=== PATIENT | female | born 1940 | race Two or more races ===

== ENCOUNTER 2023-11-02 17:09 | Emergency (ER) | payer SELFPAY ==
--- NOTE | 2023-11-02 18:33 | ED Physician Documentation ---
PD HPI LOWER EXT INJURY - Stated complaint Stated Complaint: FALL - Chief complaint Chief Complaint: Trauma Ext - History obtained from History obtained from: Patient, Family - Additional information Additional information: 83-year-old woman presents with her daughter by private vehicle. Daughter found her down yesterday after a fall and she injured her right shoulder and her right hip. Pain is pretty significant. Patient does have a history of dementia, blood pressure issues, and hyponatremia. PD PAST MEDICAL HISTORY - Past Medical History Cardiovascular: Hypertension Other Past Medical History: low sodium - Past Surgical History Past Surgical History: Yes /[employer]: Hysterectomy - Present Medications Home Medications: Ambulatory Orders Medication Instructions Recorded Confirmed oxyCODONE [Roxicodone] 5 mg PO Q4-6H PRN #12 tablet 11/02/23 - Allergies Allergies/Adverse Reactions: Allergies Allergy/AdvReac Type Severity Reaction Status Date / Time No Known Drug Allergies Allergy Verified 11/02/23 17:25 - Social History Does the pt smoke?: No Smoking Status: Never smoker Does the pt drink ETOH?: No Does the pt have substance abuse?: No PD ED PE NORMAL - Vitals Vital signs reviewed: Yes - General General: No acute distress, Other (Modestly confused, chronic per daughter.) - HEENT HEENT: PERRL, EOMI - Neck Neck: Supple, no meningeal sign, No bony TTP - Cardiac Cardiac: RRR, No murmur - Respiratory Respiratory: No respiratory distress, Clear bilaterally - Abdomen Abdomen: Soft, Non tender - Back Back: No CVA TTP, No spinal TTP - Derm Derm: Normal color, Warm and dry - Extremities Extremities: Other (Mild tenderness over the humeral head on the right, but seemingly good range of motion there. Quite tender over the right hip. No deformity. Pain with internal and external rotation there.) - Psych Psych: Normal mood, Normal affect Results - Vitals Vitals: Vital Signs - 24 hr 11/02/23 11/02/23 11/02/23 17:15 19:42 21:24 Temperature 36.3 C L Heart Rate 73 78 64 Respiratory 22 18 18 Rate Blood Pressure 154/60 H 201/88 H 115/54 L O2 Saturation 97 100 95 Oxygen O2 Source Room air - Labs Labs: Laboratory Tests 11/02/23 11/02/23 11/02/23 18:48 18:48 18:48 WBC 12.7 H RBC 4.02 L Hgb 12.1 Hct 36.1 L MCV 89.8 MCH 30.1 MCHC 33.5 RDW 11.3 L Plt Count 272 MPV 8.1 Neut # (Auto) 8.1 H Lymph # (Auto) 3.2 [place] # (Auto) 1.1 H Eos # (Auto) 0.4 Baso # (Auto) 0.1 Absolute Nucleated RBC 0.00 Nucleated RBC % 0.0 PT 12.2 INR 1.1 Sodium 130 L Potassium 4.4 Chloride 97 L Carbon Dioxide 24 Anion Gap 9.0 BUN 11 Creatinine 0.8 Estimated GFR (MDRD) 68 L Glucose 113 H Calcium 9.4 Total Bilirubin 0.7 AST 21 ALT 13 Alkaline Phosphatase 73 Total Protein 7.0 Albumin 4.0 Globulin 3.0 Albumin/Globulin Ratio 1.3 - Rads (name of study) X-ray of the right hip and shoulder showing extensive postoperative changes in the shoulder, concern for dislocation recommending CT imaging. Hip nEG Relevant Findings:: Final report received, EMP independent interpretation of test CT pelvis showing osteophytic changes throughout and left iliac/iliopsoas hematoma, small Relevant Findings:: Final report received, EMP independent interpretation of test CT right shoulder with postoperative changes, no trauma. Relevant Findings:: Final report received, EMP independent interpretation of test PD Medical Decision Making - ED course ED course: 83-year-old woman with severe right hip pain more than shoulder pain after a fall. Nonambulatory at home. Initially got 1 dose and then repeated a dose of oxycodone and some IM Toradol. Still stating severe pain. Initial x-rays showing possible did shoulder dislocation but obfuscated by hardware and no clear hip injury. This was followed by CT imaging which did not demonstrate any significant injuries other than a potential iliopsoas hematoma. Care to Dr. Berrios pending "road testing." Departure - Departure Disposition: 01 Home, Self Care Clinical Impression: Contusion of right hip Qualifiers: Encounter type: initial encounter Qualified Code(s): S70.01XA - Contusion of right hip, initial encounter Right shoulder injury Qualifiers: Encounter type: initial encounter Qualified Code(s): S49.91XA - Unspecified injury of right shoulder and upper arm, initial encounter Iliopsoas muscle hematoma Qualifiers: Encounter type: initial encounter Condition: Stable Record reviewed to determine appropriate education?: Yes Instructions: ED Joint Pain, ED Contusion Soft Tissue, ED Contusion Lower Ext Prescriptions: oxyCODONE [Roxicodone] 5 mg PO Q4-6H PRN #12 tablet PRN Reason: Pain 5-7 Comments: Degenerative changes were noted of the hips and pelvis were noted, as well as a small area of bruising in one of the muscles near the lower back/right hip, but no evidence of concerning, acute injury (no evidence of broken bone(s), dislocated joints). You will likely continue to have pain in the next 2 to 3 days, but it should be gradually improving by the beginning of this coming week (within 2 to 3 days there should be gradual improvement). If, by Sunday, you are not at least experiencing improvement in the discomfort, contact your primary care provider's office to arrange for the next available appointment for reevaluation. I am prescribing a short course of narcotic pain medication for you. These are potentially dangerous and addictive medications that should be used carefully. These medications may constipate you. Take an pdbu-jgd-[id number] stool softener (docusate) twice daily with plenty of water while taking these medications. If you go 24 hours without a bowel movement, take vvhk-zhp-[id number] miralax, per package instructions. Do not drink or drive while taking these medications. If you received narcotic or sedating medications while in the emergency department, do not drive for 24 hours. Store this medication in a safe, secure place and out of reach of children. It is a violation of federal law to give or sell this medication to another person or to use in a manner other than prescribed. The ED will not refill narcotic prescriptions, including prescriptions lost or stolen. To dispose of unwanted medications: 1. [facility] at [address] in [place] has a medication drop box. They accept prescription medications (in pill form) Sunday through Sunday 9:00 a.m. to 5:00 p.m. 2. The [facility] [employer] accepts prescription medications (in pill form only) for disposal year round. Call for more information. 3. Contact the [facility] for the next [facility] sponsored prescription drug collection event. , [phone], or [phone]; Discharge Date/Time: 11/03/23 00:18
[2023-11-02] MEDS: ACETAMINOPHEN 500 MG TABLET PO STA (18:41)
[2023-11-02 18:59] LABS: BASOPHILS # (AUTO) 0.1 10^3/uL (0.0-0.1); BASOPHILS % (AUTO) 0.5 %; EOSINOPHILS # (AUTO) 0.4 10^3/uL (0.0-0.7); EOSINOPHILS % (AUTO) 2.8 %; HCT - HEMATOCRIT 36.1 % (37.0-47.0); HGB - HEMOGLOBIN 12.1 g/dL (12.0-16.0); LYMPHOCYTES # (AUTO) 3.2 10^3/uL (1.5-3.5); LYMPHOCYTES % (AUTO) 24.7 %; MEAN CORPUSCULAR HEMOGLOBIN 30.1 pg (27.0-31.0); MEAN CORPUSCULAR HGB CONC 33.5 g/dL (32.0-36.0); MEAN CORPUSCULAR VOLUME 89.8 fL (81.0-99.0); MEAN PLATELET VOLUME 8.1 fL (7.9-10.8); MONOCYTES # (AUTO) 1.1 10^3/uL (0.0-1.0); MONOCYTES % (AUTO) 8.4 %; NEUTROPHILS # (AUTO) 8.1 10^3/uL (1.5-6.6); NEUTROPHILS % (AUTO) 63.3 %; PLT - PLATELET COUNT 272 10^3/uL (130-450); RED BLOOD COUNT 4.02 10^6/uL (4.20-5.40); RED CELL DISTRIBUTION WIDTH 11.3 % (12.0-15.0); WHITE BLOOD COUNT 12.7 x10^3/uL (4.8-10.8)
[2023-11-02 19:12] LABS: INR 1.1 (0.8-1.2); PT - PROTHROMBIN TIME 12.2 secs (9.9-12.6)
[2023-11-02 19:16] LABS: ALBUMIN/GLOBULIN RATIO 1.3 (1.0-2.2); BILIRUBIN,TOTAL 0.7 mg/dL (0.2-1.0); CALCIUM 9.4 mg/dL (8.5-10.3); CREATININE 0.8 mg/dL (0.6-1.3); POTASSIUM 4.4 mmol/L (3.5-4.5)
--- NOTE | 2023-11-02 19:35 | XRAY Report ---
PROCEDURE: Hips w/Pelvis 2-3V BL INDICATIONS: GLF TECHNIQUE: 3 view(s) of the hips were acquired. COMPARISON: None. FINDINGS: Bones: No fractures or dislocations. No suspicious bony lesions. The visualized pelvic ring appear s intact. Udtn-ei-myvetywj degenerative joint disease in hips and sacroiliac joints. Soft tissues: No suspicious soft tissue calcifications or masses. Multiple rim calcified nodules in the buttocks bilaterally. IMPRESSION: 1. No acute bony abnormality. If clinical symptoms persist and clinical suspicion for fracture is hig h, consider advanced imaging such as CT or MRI. 2. Degenerative joint disease. Reviewed by: Manju Hopper MD on 11/02/2023 7:34 PM PDT Approved by: Manju Hopper MD on 11/02/2023 7:34 PM PDT Station ID: [id number]
--- NOTE | 2023-11-02 19:37 | XRAY Report ---
PROCEDURE: Shoulder 2+V RT INDICATIONS: shoulder inj TECHNIQUE: 3 views of the shoulder were acquired. COMPARISON: None. FINDINGS: Bones: Old proximal humeral fracture and internal fixation. There is deformity of humeral head. Ques tion anterior subluxation of the humeral head at the glenohumeral joint. Severe degenerative joint di sease is present. No fractures or dislocations. No suspicious bony lesions. Visualized ribs appear intact. Soft tissues: No suspicious soft tissue calcifications. The visualized lungs are within normal limi ts. IMPRESSION: 1. Old fracture with internal fixation. There is deformity of humeral head. Question anterior subluxa tion of the humeral head. If there is high clinical suspicion for anterior dislocation, consider CT. Reviewed by: Manju Hopper MD on 11/02/2023 7:36 PM PDT Approved by: Manju Hopper MD on 11/02/2023 7:36 PM PDT Station ID: [id number]
[2023-11-02] MEDS: oxyCODONE 5 MG TABLET PO STA (19:54)
[2023-11-02 21:27] VITALS: BP 115/54; O2SAT 95
[2023-11-02] MEDS: KETOROLAC 30 MG/ML VIAL IM STA (21:28)
--- NOTE | 2023-11-02 22:51 | CT Report ---
PROCEDURE: Upper Extremity RT WO INDICATIONS: SHOULDER INJ, ABN XR TECHNIQUE: Noncontrast 2 mm axial sections were acquired through the elbow joint, with coronal and sagittal refo rmats. For radiation dose reduction, the following was used: automated exposure control, adjustment of mA and/or kV according to patient size. COMPARISON: Right shoulder radiograph from the same date. FINDINGS: Image quality: Diagnostic. Feeding hardening artifacts are noted from right humeral surgical hardwar e. Bones: There is prior internal fixation of right proximal femur with surgical plate and multiple juan a gical screws in place. No evidence of hardware loosening or failure. There is no acute fracture or di slocation. No suspicious bony lesions. Moderate acromioclavicular joint and glenohumeral joint osteoa rthritic changes are seen. Soft tissues: No gross full-thickness rotator cuff tendon rupture is seen. Mild to moderate supraspi natus muscle atrophy is seen on sagittal images. No significant joint effusion or calcified intra-art icular loose bodies. No soft tissue mass or drainable fluid collection. IMPRESSION: 1. No acute right shoulder fracture or dislocation. 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 2. Prior internal fixation of proximal humeral shaft and humeral head with surgical hardware in place . No evidence of hardware loosening or failure. 3. No significant joint effusion. No full-thickness rotator cuff tendon rupture. Mild to moderate sup raspinatus muscle atrophy. No abnormal soft tissue calcifications. Reviewed by: Lamine Lassiter MD on 11/02/2023 10:50 PM PDT Approved by: Lamine Lassiter MD on 11/02/2023 10:50 PM PDT Station ID: [id number]
--- NOTE | 2023-11-02 22:55 | CT Report ---
PROCEDURE: Lower Extremity RT WO INDICATIONS: FALL HIP PAIN TECHNIQUE: Noncontrast 3-mm axial sections acquired from the distal tibial shaft to the talar dome, with coronal and sagittal reformats. For radiation dose reduction, the following was used: automated exposure c ontrol, adjustment of mA and/or kV according to patient size. COMPARISON: Bilateral hip radiograph on the same day.. FINDINGS: Image quality: Excellent. Bones: Pelvic ring is intact. No acute pelvic or hip fracture. Osteoarthritic changes are seen in bi lateral sacroiliac joints, hip joints, and symphysis pubis. No evidence of avascular necrosis of femo ral head. No suspicious bony lesions. Degenerative disc disease in visualized lower lumbar spine is s een. Soft tissues: Slight asymmetrically enlarged right iliacus muscle is seen which may represent intram uscular hematoma. There is no peritoneal free fluid of free air. Bladder wall thickness is normal. No abnormal bowel wall thickening. Asymmetrically enlarged right iliopsoas muscle with mild adjacent fa t stranding concerning for muscle strain or intramuscular hematoma. No drainable fluid collection. No abnormal soft tissue calcifications. Impression: 1. Osteophytic changes throughout the bony pelvis. No acute pelvic or hip fracture. No evidence of av ascular necrosis. Degenerative disc disease in visualized lower lumbar spine. 2. Suggestion of small intramuscular hematoma involving left iliacus muscle and iliopsoas muscle. No pelvic free fluid of free air. No abnormal soft tissue calcifications. No soft tissue mass or drainab le fluid collection. Reviewed by: Lamine Lassiter MD on 11/02/2023 10:53 PM PDT Approved by: Lamine Lassiter MD on 11/02/2023 10:53 PM PDT Station ID: [id number]
[2023-11-02] MEDS ORDERED: ACETAMINOPHEN 500 MG TABLET PO PRN (23:23)
[2023-11-02] MEDS ORDERED: oxyCODONE 5 MG TABLET PO PRN (23:23)
[2023-11-02] MEDS ORDERED: ONDANSETRON 4 MG/2 ML VIAL IVP PRN (23:23)
--- NOTE | 2023-11-03 00:10 | ED Physician Documentation ---
ED Addendum - Addendum Addendum: 11/02/23 23:57 I received signout/turnover of care from Dr. Sharpe; please see his note for complete H&P. In short, this patient sustained a fall and complains of right hip pain. She also was having right shoulder pain. X-rays of the right shoulder and right hip were unremarkable for acute injury. Due to ongoing pain, particularly when attempting to weight-bear, a CT of the right hip was then undertaken. There is no evidence of acute injury on the CT study except for questionable small intramuscular hematoma involving the right iliacus and iliopsoas muscles (NOTE that radiologist's reading initially indicates defect is of RIGHT iliopsoas which correlates with patient's right-sided pain c/o, although under "impression" the radiologist's dictation indicates the possible hematoma is LEFT-sided). A "road test" was undertaken by the ED RN, and although patient did have anta lgic gait and worsening of her right hip pain complaint with weightbearing, she was nonetheless able to partially weight-bear. I reevaluated the patient, and find her seated in the chair, smiling and in NAD. I discussed with patient and her daughter (in ED at bedside) that, at this point, she is safe and appropriate for discharge home. I am providing her a paper prescription for oxycodone (offe red to electronically submitted to patient's pharmacy of choice, but patient's daughter requests [id number]), return precautions reviewed, advised to seek follow-up with PCP by calling the office on Sunday when the next open to arrange for the next available appointment.
[2023-11-03] MEDS ORDERED: PANTOPRAZOLE 40 MG TABLET PO SCH (07:00)
[2023-11-03] MEDS ORDERED: ENOXAPARIN 40 MG/0.4 ML SYRINGE SUBQ SCH (09:00)
== END 2023-11-03 00:18 | disposition home or self-care (01) ==
LOC: ED 17:09
DX: S49.91XA Unspecified injury of right shoulder and upper arm, initial encounter (principal); S70.01XA Contusion of right hip, initial encounter; S70.11XA Contusion of right thigh, initial encounter; W19.XXXA Unspecified fall, initial encounter
CPT/HCPCS: 36415; 73030; 73200; 73521; 73700; 80053; 85025; 85610; 96372; 99284; A9270